=== PATIENT | female | born 1970 | race Caucasian/White ===

== ENCOUNTER 2017-08-13 14:46 | Emergency (ER) | payer BC ==
[~2017-08-13] VITALS: Ht 167.6 cm; Wt 58.2 kg
[2017-08-13 14:50] VITALS: Ht 167.6 cm; Wt 58.2 kg
[2017-08-13] MEDS ORDERED: SYNTHROID50 MCG PO (14:51)
[2017-08-13] MEDS ORDERED: BENICAR20 MG PO (14:52)
[2017-08-13] MEDS ORDERED: ZOFRAN ODT4 MG/UDTAB PO (18:40)
[2017-08-13] MEDS ORDERED: TYLENOL W/CODEI1 TAB PO (18:40)
[2017-08-13 19:06] VITALS: BP 122/78
== END 2017-08-13 19:08 | disposition home or self-care (01) ==
LOC: D.ER 14:46
DX: R51 Headache (principal); R11.2 Nausea with vomiting, unspecified